=== PATIENT | female | born 1945 | race African-American/Black ===

== ENCOUNTER 2017-10-20 09:40 | Day surgery (SDC) | payer MEDICARE, OTHER ==
[~2017-10-20 09:40] MED LIST: KETOROLAC TROMETHAMINE 0.45% 4 DROP/0.4 ML DROPERETTE OS PRN
[2017-10-20] MEDS ORDERED: MIDAZOLAM 2 MG/2 ML INJ ONE (09:54)
[2017-10-20] MEDS ORDERED: EPINEPHRINE INJ/PF 1 MG/1 ML AMPULE ONE (10:02)
[2017-10-20] MEDS ORDERED: LIDOCAINE 1%/PHENYLEPHRINE 1.5% 1 ML VIAL ONE (10:02)
[2017-10-20] MEDS ORDERED: CHONDR SU A NA/HYALUR INTRAOC KIT (SURGICARE) ONE (10:03)
[2017-10-20] MEDS ORDERED: LIDOCAINE 1% INJ-PF (10 MG/ML) 30 ML SDV ONE (10:03)
[2017-10-20] MEDS: CYCLOPENTOLATE 0.2%/PHENYLEPHRINE 1% OPH SOLN 2 ML OS PRN ×3 (10:16→10:49)
[2017-10-20] MEDS: TROPICAMIDE 1% OPH SOLN 3 ML OS PRN ×3 (10:16→10:49)
[2017-10-20] MEDS: BESIFLOXACIN HCL 0.6% OPH SUSP 5 ML BOTTLE OS PRN ×3 (10:17→11:14)
[2017-10-20] MEDS: TETRACAINE HCL 0.5% OPH SOLN 2 ML OS PRN ×3 (10:18→10:51)
--- NOTE | 2017-10-20 22:25 | [facility] OPERATIVE REPORT E ---
[facility] Operative Report NAME: TOSHA MARQUES AGE: 71Y DATE OF SURGERY: 10/20/2017 ROOM: PREOPERATIVE DIAGNOSIS: CATARACT, LEFT EYE. POSTOPERATIVE DIAGNOSIS: CATARACT, LEFT EYE. OPERATION: Cataract extraction with ReSTOR IOL of the left eye. SURGEON: MARQUIS LEVIN M.D. ANESTHESIA: Topical. PROCEDURE: After obtaining appropriate consent, the patient's left eye was prepped and draped in sterile fashion as well as the surgeon in a sterile manner and cataract surgery was started. First a paracentesis blade was used to make a side-port incision. Viscoelastic was used to inflate the anterior chamber. Next a 2.4 mm incision was made with a 2.4 mm blade, clear corneal temporally. A continuous capsulorrhexis was made using a cystotome and Utrata forceps. Following this hydrodissection was carried out to make the lens fully loose and mobile and it was rotated 90 degrees. Following this, a roorxk-bca-fkkmmqq technique was used to phacoemulsify the lens with a CDE of 5.84. The remaining cortex was removed with irrigation/aspiration. Provisc was instilled into the capsular bag to inflate the bag. A SN6AD1, 22.0 diopter lens was placed. The remaining viscoelastic material was removed with irrigation/aspiration. Following this, the incision was found to be watertight. Besivance was instilled into the eye and a protective shield was placed over the eye. The patient returned to the postoperative recovery in stable condition. DICTATING PHYSICIAN: MARQUIS LEVIN M.D. 1305M [id number] Y#: [id number] ID: [id number] JOB#: [id number] ACCT: [id number] cc:MARQUIS LEVIN M.D. >
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
== END 2017-10-20 11:58 | disposition home or self-care (01) ==
LOC: SC 09:40
PROVIDERS: ATTEND Internal Medicine
DX: H25.13 Age-related nuclear cataract, bilateral (principal); H04.123 Dry eye syndrome of bilateral lacrimal glands; I10 Essential (primary) hypertension; G51.0 Bell's palsy; Z79.899 Other long term (current) drug therapy; Z86.73 Personal history of transient ischemic attack (TIA), and cerebral infarction without residual deficits; Z88.8 Allergy status to other drugs, medicaments and biological substances; Z85.3 Personal history of malignant neoplasm of breast
CPT/HCPCS: 66984; V2788; J2250; J3490; A9270; J0171; J2370; 142

== ENCOUNTER 2017-11-10 10:03 | Day surgery (SDC) | payer MEDICARE, OTHER ==
[~2017-11-10 10:03] MED LIST changes: +BUPIVACAINE HCL 0.75% INJ/PF (7.5 MG/1 ML) 10 ML SDV OD PRN; +KETOROLAC TROMETHAMINE 0.45% 4 DROP/0.4 ML DROPERETTE OD PRN; -KETOROLAC TROMETHAMINE 0.45% 4 DROP/0.4 ML DROPERETTE OS PRN; +LIDOCAINE 4% INJ/PF (40 MG/ML) 5 ML AMPUL OD PRN
[2017-11-10] MEDS ORDERED: CHONDR SU A NA/HYALUR INTRAOC KIT (SURGICARE) ONE (10:07)
[2017-11-10] MEDS ORDERED: EPINEPHRINE INJ/PF 1 MG/1 ML AMPULE ONE (10:07)
[2017-11-10] MEDS ORDERED: LIDOCAINE 1%/PHENYLEPHRINE 1.5% 1 ML VIAL ONE (10:07)
[2017-11-10] MEDS: CYCLOPENTOLATE 0.2%/PHENYLEPHRINE 1% OPH SOLN 2 ML OD PRN ×3 (10:34→10:54)
[2017-11-10] MEDS: TROPICAMIDE 1% OPH SOLN 3 ML OD PRN ×3 (10:34→10:54)
[2017-11-10] MEDS: BESIFLOXACIN HCL 0.6% OPH SUSP 5 ML BOTTLE OD PRN ×4 (10:34→11:33)
[2017-11-10] MEDS: TETRACAINE HCL 0.5% OPH SOLN 2 ML OD PRN ×3 (10:35→11:04)
[2017-11-10] MEDS ORDERED: MIDAZOLAM 2 MG/2 ML INJ ONE ×2 (10:50→10:51)
--- NOTE | 2017-11-10 20:06 | [facility] OPERATIVE REPORT E ---
[facility] Operative Report NAME: TOSHA MARQUES AGE: 71Y DATE OF SURGERY: 11/10/2017 ROOM: PREOPERATIVE DIAGNOSIS: CATARACT, RIGHT EYE. POSTOPERATIVE DIAGNOSIS: CATARACT, RIGHT EYE. OPERATION: Cataract extraction with Restore IOL of the right eye. SURGEON: MARQUIS LEVIN M.D. ANESTHESIA: Topical. PROCEDURE: After obtaining appropriate consent, the patient's right eye was prepped and draped in sterile fashion as well as the surgeon in a sterile manner and cataract surgery was started. First a paracentesis blade was used to make a side-port incision. Viscoelastic was used to inflate the anterior chamber. Next a 2.4 mm incision was made with a 2.4 mm blade, clear corneal temporally. A continuous capsulorrhexis was made using a cystotome and Utrata forceps. Following this hydrodissection was carried out to make the lens fully loose and mobile and it was rotated 90 degrees. Following this, a xjwlcd-evn-zltqhhl technique was used to phacoemulsify the lens with a CDE of 7.13. The remaining cortex was removed with irrigation/aspiration. Provisc was instilled into the capsular bag to inflate the bag. A SN60WF lens, 21.5 AD-1 diopter lens was placed. The remaining viscoelastic material was removed with irrigation/aspiration. Following this, the incision was found to be watertight. Besivance was instilled into the eye and a protective shield was placed over the eye. The patient returned to the postoperative recovery in stable condition. DICTATING PHYSICIAN: MARQUIS LEVIN M.D. 1284M [id number] PHY#: [id number] ID: [id number] JOB#: [id number] ACCT: [id number] cc:MARQUIS LEVIN M.D. >
--- NOTE | 2017-11-10 21:11 | DISCHARGE SUMMARY E ---
Discharge Summary NAME: TOSHA MARQUES : 1945 AGE: 71Y ADMITTED: 11/10/2017 DISCHARGED: 11/10/2017 HISTORY: This is a 71-year-old female who underwent cataract extraction of the right eye with insertion of a Restore IOL. DIAGNOSIS: Cataract, right eye. HOSPITAL COURSE: The patient underwent surgery because she was having trouble seeing road signs and the television. The patient should be on a regular diet. No bending at the waist. No heaving lifting. She should use her Besivance, Ilevro, and Durezol at 3:00 p.m. and 8:00 p.m. and sleep with a rigid shield, and I will see her for a 1-day postoperative tomorrow. DICTATING PHYSICIAN: MARQUIS LEVIN M.D. 1284M 1950 PHY#: [id number] ID: [id number] JOB#: [id number] ACCT: [id number] cc:MARQUIS LEVIN M.D. >
== END 2017-11-10 12:08 | disposition home or self-care (01) ==
LOC: SC 10:03
PROVIDERS: ATTEND Internal Medicine
DX: H25.11 Age-related nuclear cataract, right eye (principal); H43.813 Vitreous degeneration, bilateral; Z96.1 Presence of intraocular lens; I10 Essential (primary) hypertension; Z79.899 Other long term (current) drug therapy; Z88.8 Allergy status to other drugs, medicaments and biological substances
CPT/HCPCS: 66984; V2788; J2250; J3490; A9270; J0171; J2370; 142